=== PATIENT | male | born 1995 | race Two or more races ===

== ENCOUNTER 2016-11-06 18:25 | Emergency (ER) | payer SELFPAY ==
[~2016-11-06] VITALS: Ht 177.8 cm; Wt 99.8 kg
[2016-11-06 18:53] VITALS: BP 135/57
[2016-11-06] MEDS ORDERED: NAPR500T PO (19:07)
[2016-11-06] MEDS ORDERED: SULF1TAB24 PO (19:07)
--- NOTE | 2016-11-06 19:07 | PHYS DOC ---
Adult General Chief Complaint Chief Complaint: ABSCESS HPI HPI Patient is a 21 year old male presents to the emergency Department complaint abscess to the right side of the neck. Patient states it's been present for one week. He is drained twice. He has had no fever. Review of Systems Review of Systems Constitutional: Denies fever or chills [] Eyes: Denies change in visual acuity, redness, or eye pain [] HENT: Denies nasal congestion or sore throat [] Respiratory: Denies cough or shortness of breath [] Cardiovascular: No additional information not addressed in HPI [] GI: Denies abdominal pain, nausea, vomiting, bloody stools or diarrhea [] : Denies dysuria or hematuria [] Musculoskeletal: Denies back pain or joint pain [] Integument: Abscess Neurologic: Denies headache, focal weakness or sensory changes [] Endocrine: Denies polyuria or polydipsia [] Physical Exam Physical Exam Constitutional: Well developed, well nourished, no acute distress, non-toxic appearance. [] Neck: Normal range of motion, no tenderness, supple, no stridor. Right posterior neck, 1 cm area of induration slightly raised. Central opening. No discharge at time of exam. Cardiovascular:Heart rate regular rhythm, no murmur [] Lungs & Thorax: Bilateral breath sounds clear to auscultation [] Skin: Warm, dry, no erythema, no rash. [] EKG EKG [] Radiology/Procedures Radiology/Procedures [] Course & Med Decision Making Course & Med Decision Making Pertinent Labs and Imaging studies reviewed. (See chart for details) [] Dragon Disclaimer Dragon Disclaimer This electronic medical record was generated, in whole or in part, using a voice recognition dictation system. Departure Departure Impression: Primary Impression: Abscess Disposition: 01 HOME, SELF-CARE Condition: STABLE Referrals: NO PCP (PCP) [facility] Patient Instructions: Abscess Scripts Naproxen (NAPROSYN) 500 Mg Tablet 1 TAB PO BID, #20 TAB 1 Refill Prov: LOC PEREZ APRN 11/06/16 Sulfamethoxazole/Trimethoprim (BACTRIM DS TABLET) 1 Each Tablet 1 TAB PO BID, #20 TAB Prov: LOC PEREZ APRN 11/06/16 LOC PEREZ APRN Nov 06, 2016 19:07
== END 2016-11-06 19:24 | disposition home or self-care (01) ==
LOC: ER 18:25
DX: L02.11 Cutaneous abscess of neck (principal)
CPT/HCPCS: 99283